=== PATIENT | female | born 1945 | race Caucasian/White ===

== ENCOUNTER 2017-01-07 16:33 | Inpatient (IN) | payer MEDICARE, OTHER ==
[~2017-01-07] VITALS: Ht 1615.4 cm; Wt 39.5 kg
--- NOTE | 2017-01-07 16:45 | NUR ---
lizet camargo, called and said she pt advocate and has power of commercial real estate attorney, giving more info on the pt. she said that dr. ashley at [facility] [phone] taking care of the pt, and aware of the fact that the pt is here at [place], also requesting the pt mingo transfered to [facility] when stable. dickson olmos notified.
--- NOTE | 2017-01-07 16:50 | NUR ---
called [facility] regarding transfer of the pt. no bed available at this point but may be later tonight. requesting face sheet and clinical to be faxed to [phone]
[2017-01-07 17:59] LABS: EOSINOPHILS # (AUTO) 0.1 K/uL (0.0-0.7); LYMPHOCYTES # (AUTO) 1.1 K/UL (0.8-4.8); MONOCYTES # (AUTO) 0.5 K/UL (0.1-1.30)
[2017-01-07 18:03] LABS: BASOPHILS % (AUTO) 0.2 % (0.0-2.0); EOSINOPHILS % (AUTO) 1.7 % (0.0-7.0); LYMPHOCYTES % (AUTO) 13.3 % (20.5-51.5); MEAN CORPUSCULAR HEMOGLOBIN 33.3 UUG (27.0-31.0); MEAN CORPUSCULAR HGB CONC 34 g/dL (32.0-37.0); MEAN CORPUSCULAR VOLUME 97.5 FL (81.0-99.0); MONOCYTES % (AUTO) 5.9 % (0.0-11.0); NEUTROPHILS # (AUTO) 6.4 K/UL (1.8-8.9); NEUTROPHILS % (AUTO) 78.9 % (38.5-71.5); PLATELET COUNT (AUTO) 195 K/UL (150-450); WHITE BLOOD COUNT (AUTO) 8.1 K/UL (4.0-11.2)
[2017-01-07 18:04] LABS: RED BLOOD CELL COUNT(AUTO) 2.11 MIL/UL (4.2-5.4)
[2017-01-07 18:05] LABS: HEMATOCRIT 20.6 % (37-47); HEMOGLOBIN 7.1 G/DL (12.0-16.0)
[2017-01-07 18:16] LABS: CARBON DIOXIDE 27 mmol/L (21-32); CHLORIDE 110 mmol/L (98-107); GLUCOSE 112 mg/dL (74-106); POTASSIUM 4.5 mmol/L (3.5-5.1); UREA NITROGEN, BLOOD 23 mg/dL (7-18)
[2017-01-07 18:20] LABS: ALANINE AMINOTRANSFERASE 64 U/L (14-59); ALKALINE PHOSPHATASE 888 U/L (50-136); ASPARTATE AMINOTRANSFERASE 105 U/L (15-37); BILIRUBIN,TOTAL 1.5 mg/dL (0.2-1.0); LIPASE 228 U/L (73-393); TOTAL PROTEIN, SERUM 5.8 g/dL (6.4-8.2)
[2017-01-07] MEDS ORDERED: PROP10TA29 PO (18:20)
[2017-01-07] MEDS ORDERED: PANT40TA2 PO (18:20)
[2017-01-07] MEDS ORDERED: HYDR-552 PO (18:20)
--- NOTE | 2017-01-07 18:55 | NUR ---
faxed the pt summary report and face sheet to [facility]
--- NOTE | 2017-01-07 19:33 | NUR ---
Received report from NAHID Zavala. Assumed care of pt at this time. Pt resting in position of comfort for self. Pt requesting small amount of pain medication. MD notified, awaiting further orders.
--- NOTE | 2017-01-07 20:08 | NUR ---
Pt medicated for discomfort, will monitor for effects of medication. Pt repositioned for comfort and given warm blanket.
--- NOTE | 2017-01-07 21:30 | NUR ---
Called [facility] for update on pts possible transfer to their facility. Was informed by Trisha (bed control) there are no beds available at this time.
--- NOTE | 2017-01-07 21:55 | NUR ---
Pt had three episodes of vomiting bright red blood. Dr. Ivey notified. Pt and bed cleaned and changed. Pt also c/o pain. Dr. Ivey notified. Pt medicated for pain and vomiting, will monitor for effects of medication. Pt resting in position of comfort for self.
--- NOTE | 2017-01-07 23:42 | NUR ---
No beds available at [facility]. Attempting to admit pt here. Repat labs drawn and sent. Epic television receiver analyzer paged for Dr. Ivey. Pt repositioned for comfort.
[2017-01-08] VITALS (16 sets, daily range): BP systolic 92–118; BP diastolic 32–60
[2017-01-08] LABS: BASOPHILS % (AUTO) 0.2 % (0.0-2.0); EOSINOPHILS % (AUTO) 0.1 % (0.0-7.0); HEMOGLOBIN 7.1 G/DL (12.0-16.0); LYMPHOCYTES # (AUTO) 1.4 K/UL (0.8-4.8); LYMPHOCYTES % (AUTO) 12.8 % (20.5-51.5); MEAN CORPUSCULAR HGB CONC 33 g/dL (32.0-37.0); MEAN CORPUSCULAR VOLUME 98.9 FL (81.0-99.0); MONOCYTES # (AUTO) 0.4 K/UL (0.1-1.30); MONOCYTES % (AUTO) 3.4 % (0.0-11.0); NEUTROPHILS # (AUTO) 9.5 K/UL (1.8-8.9); NEUTROPHILS % (AUTO) 83.5 % (38.5-71.5); PLATELET COUNT (AUTO) 225 K/UL (150-450); WHITE BLOOD COUNT (AUTO) 11.3 K/UL (4.0-11.2)
[2017-01-08 00:07] LABS: HEMATOCRIT 21.2 % (37-47); RED BLOOD CELL COUNT(AUTO) 2.14 MIL/UL (4.2-5.4)
--- NOTE | 2017-01-08 00:11 | NUR ---
Pt re-medicated for vomiting, will monitor for effects of medication. Fluid bolus infusing freely to gravity.
--- NOTE | 2017-01-08 00:41 | NUR ---
Pt's family Rigoberto [phone]
--- NOTE | 2017-01-08 00:42 | NUR ---
Consent for blood transfusion signed, awaiting blood products. Report called to NAHID Flores. Preparing to transfer pt to the floor.
--- NOTE | 2017-01-08 02:48 | NUR ---
RECEIVED PATIENT FROM E.Om[facility] ADMITTING DIAGNOSIS OF UPPER GI BLEEDING. INITIAL ASSESSMENTS DONE. PLACED ON TELEMETRY MONITORING SINUS BRADUCARDIA HR AT HIGH 50'S. VITAL SIGNS ARE STABLE. NAUSEATED NO VOMITING. HEMOGLOBIN 7.1, FOLLOWED UP PRBC 1 UNIT IN THE BLOOD BANK. STARTED NSS AT 75 ML/HR ORDERED. PATIENT IS WEAK BUT ALERT AND ORIENTED X4, COOPERATIVE WITH CARE. NOTED REDNESS/ DRY HEALING WOUND OVER THE NAVEL AREA OPEN TO AIR NO DISCHARGE. OTHERWISE PATIENT IS SLEEPING RIGHT NOW. CALL LIGHT WITHIN REACH.
--- NOTE | 2017-01-08 04:50 | NUR ---
CHECKED AND VERIFIED BLOOD PRODUCT. STARTED BLOOD TRANSFUSION PRBC. INITIAL VITAL SIGNS TAKEN. ADVISED PATIENT TO REPORT ANY SIGNS AND SYMPTOMS OF BLOOD TRANSFUSION REACTION TO THE ASSISTANT TECHNICIAN. WILL MONITOR.
--- NOTE | 2017-01-08 06:53 | NUR ---
BLOOD PRESSURE SBP MAINTAINING IN 90 SBP NO LIGHTHEADED OR DIZZINESS PER PATIENT. OTHERWISE PATIENT HAS NO S/S OF BLOOD TRANSFUSION REACTION. CALL LIGHT WITHIN REACH
--- NOTE | 2017-01-08 07:30 | NUR ---
NO SIGNS OF DISTRESS FINISHING BLOOD TRANSFUSION, DENIES PAIN CLOSELY MONITORED
--- NOTE | 2017-01-08 08:35 | NUR ---
BLOOD TRANSFUSION COMPLETED WITHOUT REACTIONS
[2017-01-08 09:00] LABS: BASOPHILS % (AUTO) 0.2 % (0.0-2.0); LYMPHOCYTES # (AUTO) 1.2 K/UL (0.8-4.8); LYMPHOCYTES % (AUTO) 13.9 % (20.5-51.5); MEAN CORPUSCULAR HEMOGLOBIN 31.2 UUG (27.0-31.0); MEAN CORPUSCULAR HGB CONC 33 g/dL (32.0-37.0); MEAN CORPUSCULAR VOLUME 95.3 FL (81.0-99.0); MONOCYTES # (AUTO) 0.3 K/UL (0.1-1.30); MONOCYTES % (AUTO) 3.6 % (0.0-11.0); NEUTROPHILS % (AUTO) 82.3 % (38.5-71.5); PLATELET COUNT (AUTO) 142 K/UL (150-450); RED BLOOD CELL COUNT(AUTO) 2.52 MIL/UL (4.2-5.4); WHITE BLOOD COUNT (AUTO) 8.5 K/UL (4.0-11.2)
[2017-01-08 09:20] LABS: HEMOGLOBIN 7.9 G/DL (12.0-16.0)
--- NOTE | 2017-01-08 13:00 | NUR ---
BLOOD TRANSFUSION STARTED CLOSELY MONITORED
--- NOTE | 2017-01-08 14:00 | NUR ---
NO SIGNS OF BLOOD TRANSFUSION REACTION NOTED
--- NOTE | 2017-01-08 16:00 | NUR ---
TRANSFUSION COMPLETED. FOR EGD IN AM
[2017-01-08 17:36] LABS: *BLOOD, URINE NEGATIVE (NEGATIVE); *CLARITY,URINE SLIGHTLY CLOUDY (CLEAR); *COLOR,URINE AMBER (YELLOW); *KETONES,URINE NEGATIVE (NEGATIVE); *PROTEIN,URINE TRACE (NEGATIVE); LEUKOCYTE ESTERASE ,URINE TRACE (NEGATIVE); NITRITE, URINE NEGATIVE (NEGATIVE); PH,URINE 5.5 (5.0-8.0); UGLUCOSE NEGATIVE (NEGATIVE)
--- NOTE | 2017-01-08 18:06 | NUR ---
PATIENT WAS SO SICK TO SIGN SURGICAL CONSENT BROTHER WHO IS ALSO A DPOA WAS AROUND AND SPOKE WITH DR ABDI SIGNED CONSENT
[2017-01-08 18:08] LABS: *BILIRUBIN,URIN 1+ (NEGATIVE)
[2017-01-08 18:09] LABS: BACTERIA,URINE MODERATE /HPF (NONE SEEN); RBC,URINE 0-3 /HPF (0-3); SQUAMOUS EPITHELIAL CELL,UR MANY /HPF (NONE SEEN)
[2017-01-08 18:10] LABS: MUCUS,URINE FEW /LPF (0-FEW)
--- NOTE | 2017-01-08 20:00 | NUR ---
pt received in bed AOx3. Pt resting comfortably at this time, no acute distress noted. IVF running in left hand, intact and patent. Pt aware and educated regarding EGD to be done in AM. Bed in low and locked position. Will continue to monitor.
--- NOTE | 2017-01-08 22:00 | NUR ---
family member called reporting pt has had prior procedures done at [facility], [place] with MD Dr Farmer, per family report pt was intubated with each procedure and procedure where pt wasnot intubated pt was transferred to ICU care. Will endorse to MD and surgery rn.
--- NOTE | 2017-01-09 02:00 | NUR ---
Pt awake to use restroom, pt alert but has periods of confusion. Comfort measures provided. No acute distress noted.
--- NOTE | 2017-01-09 03:11 | NUR ---
Pt sleeping in bed at this time, arouses easily. Receiving IVF and tolerating well. No acute distress noted.
[2017-01-09 05:01] VITALS: BP 112/62
--- NOTE | 2017-01-09 06:07 | NUR ---
Pt slept well through out the night. Receiving IVF, tolerating well. Remains NPO. Pre-op checklist done. Pt does c/o pain to abdomen but refusing any more morphine at this time. No acute distress noted.
[2017-01-09 06:30] LABS: BASOPHILS % (AUTO) 0.6 % (0.0-2.0); EOSINOPHILS # (AUTO) 0.1 K/uL (0.0-0.7); EOSINOPHILS % (AUTO) 1.9 % (0.0-7.0); HEMATOCRIT 25.2 % (37-47); HEMOGLOBIN 8.6 G/DL (12.0-16.0); LYMPHOCYTES # (AUTO) 1.2 K/UL (0.8-4.8); LYMPHOCYTES % (AUTO) 17.7 % (20.5-51.5); MEAN CORPUSCULAR HEMOGLOBIN 31.5 UUG (27.0-31.0); MEAN CORPUSCULAR HGB CONC 34 g/dL (32.0-37.0); MEAN CORPUSCULAR VOLUME 92.6 FL (81.0-99.0); MONOCYTES # (AUTO) 0.6 K/UL (0.1-1.30); MONOCYTES % (AUTO) 8.8 % (0.0-11.0); NEUTROPHILS # (AUTO) 5.1 K/UL (1.8-8.9); PLATELET COUNT (AUTO) 104 K/UL (150-450); RED BLOOD CELL COUNT(AUTO) 2.72 MIL/UL (4.2-5.4)
[2017-01-09 06:48] LABS: CARBON DIOXIDE 24 mmol/L (21-32); CHLORIDE 111 mmol/L (98-107); CHOLESTEROL 102 mg/dL (<200); CREATININE 1.3 mg/dL (0.6-1.3); GLUCOSE 116 mg/dL (74-106); HDL CHOLESTEROL 29 mg/dL (40-60); MAGNESIUM 1.6 mg/dL (1.8-2.4); PHOSPHOROUS 2.5 mg/dL (2.5-4.9); POTASSIUM 4.2 mmol/L (3.5-5.1); TRIGLYCERIDES 52 MG/DL (30-150); UREA NITROGEN, BLOOD 34 mg/dL (7-18)
--- NOTE | 2017-01-09 07:25 | NUR ---
pt received in bed AOx1. Pt resting comfortably at this time, no acute distress noted. IVF running in left hand, intact and patent. . Bed in low and locked position. Will continue to monitor.
--- NOTE | 2017-01-09 07:31 | NUR ---
pt went to or via bed for egd in stable condition.
[2017-01-09 08:39] LABS: THYROID STIMULATING HORMONE 4.662 mIU/mL (0.358-3.740)
--- NOTE | 2017-01-09 09:58 | NUR ---
pt received from recovery room via bed in stable condition.
[2017-01-09 10:04] VITALS: BP 109/63
[2017-01-09 11:19] VITALS: BP 120/63
[2017-01-09 16:13] VITALS: BP 116/65
--- NOTE | 2017-01-09 19:30 | NUR ---
received patient laying in bed comfortably, no acute distress noted, patient on IVF tolerating well, complains of abdominal pain 8/10, no vomiting noted, bed in low position and locked, call light in reach.
[2017-01-09 20:00] VITALS: BP 121/47
--- NOTE | 2017-01-09 22:00 | NUR ---
complains of abdominal pain 11/15, morphine PRN given, will continue to monitor.
[2017-01-10 05:11] VITALS: BP 111/51
[2017-01-10 06:36] LABS: ALANINE AMINOTRANSFERASE 76 U/L (14-59); ALKALINE PHOSPHATASE 939 U/L (50-136); ASPARTATE AMINOTRANSFERASE 117 U/L (15-37); BILIRUBIN,TOTAL 0.9 mg/dL (0.2-1.0); CARBON DIOXIDE 26 mmol/L (21-32); CHLORIDE 111 mmol/L (98-107); CREATININE 1.1 mg/dL (0.6-1.3); GLUCOSE 108 mg/dL (74-106); LIPASE 115 U/L (73-393); MAGNESIUM 2.2 mg/dL (1.8-2.4); PHOSPHOROUS 2.1 mg/dL (2.5-4.9); POTASSIUM 3.8 mmol/L (3.5-5.1); TOTAL PROTEIN, SERUM 6.3 g/dL (6.4-8.2); UREA NITROGEN, BLOOD 22 mg/dL (7-18)
[2017-01-10 07:32] LABS: BASOPHILS % (AUTO) 0.4 % (0.0-2.0); EOSINOPHILS # (AUTO) 0.2 K/uL (0.0-0.7); HEMATOCRIT 25.4 % (31.2-41.9); LYMPHOCYTES # (AUTO) 0.8 K/uL (20.0-40.0); LYMPHOCYTES % (AUTO) 14.9 % (20.5-51.5); MEAN CORPUSCULAR HEMOGLOBIN 32.4 uug (24.7-32.8); MEAN CORPUSCULAR HGB CONC 35 g/dL (32.3-35.6); MEAN CORPUSCULAR VOLUME 91.9 fL (75.5-95.3); MONOCYTES # (AUTO) 0.5 K/uL (2.0-10.0); MONOCYTES % (AUTO) 8.8 % (0.0-11.0); NEUTROPHILS % (AUTO) 72.9 % (38.5-71.5); PLATELET COUNT (AUTO) 83 K/uL (179-408); RED BLOOD CELL COUNT(AUTO) 2.77 MIL/uL (3.63-4.92); WHITE BLOOD COUNT (AUTO) 5.5 K/uL (3.8-11.8)
[2017-01-10 11:45] VITALS: BP 130/70
[2017-01-10 13:16] LABS: BAND % (MANUAL) 3 % (0-10); BASOPHILS % (MANUAL) 1 % (0-2); EOSINOPHILS % (MANUAL) 5 % (0-8); LYMPHOCYTES % (MANUAL) 14 % (20-40); MONOCYTES % (MANUAL) 9 % (2-10); NEUTROPHILS % (MANUAL) 68 % (42-75)
[2017-01-10 15:55] VITALS: BP 135/76
[2017-01-10 20:00] VITALS: BP 169/77
--- NOTE | 2017-01-11 04:00 | NUR ---
PT CONTINUE TO HAVE ABDOMINAL PAIN MORPHINE GIVEN Q3HRS.,WITH GOOD RELIEF, SLEPT WELL, NEW IV SITE INTACT, CONTINUE IV FLUIDS.VSS,AFEBRILE. ALL NEEDS ATTENDED.CALL LIGHT AT REACHED.
[2017-01-11 04:25] VITALS: BP 121/48
[2017-01-11 06:56] LABS: BASOPHILS % (AUTO) 0.5 % (0.0-2.0); EOSINOPHILS # (AUTO) 0.2 K/uL (0.0-0.7); EOSINOPHILS % (AUTO) 3.8 % (0.0-7.0); HEMATOCRIT 25.5 % (37-47); HEMOGLOBIN 8.9 G/DL (12.0-16.0); LYMPHOCYTES # (AUTO) 0.8 K/UL (0.8-4.8); LYMPHOCYTES % (AUTO) 14.7 % (20.5-51.5); MEAN CORPUSCULAR HEMOGLOBIN 32.7 UUG (27.0-31.0); MEAN CORPUSCULAR HGB CONC 35 g/dL (32.0-37.0); MEAN CORPUSCULAR VOLUME 93.8 FL (81.0-99.0); MONOCYTES # (AUTO) 0.4 K/UL (0.1-1.30); MONOCYTES % (AUTO) 6.9 % (0.0-11.0); NEUTROPHILS # (AUTO) 4.1 K/UL (1.8-8.9); NEUTROPHILS % (AUTO) 74.1 % (38.5-71.5); PLATELET COUNT (AUTO) 79 K/UL (150-450); RED BLOOD CELL COUNT(AUTO) 2.71 MIL/UL (4.2-5.4); WHITE BLOOD COUNT (AUTO) 5.5 K/UL (4.0-11.2)
[2017-01-11 07:09] LABS: CARBON DIOXIDE 24 mmol/L (21-32); CHLORIDE 111 mmol/L (98-107); GLUCOSE 105 mg/dL (74-106); MAGNESIUM 1.9 mg/dL (1.8-2.4); PHOSPHOROUS 2.7 mg/dL (2.5-4.9); UREA NITROGEN, BLOOD 18 mg/dL (7-18)
--- NOTE | 2017-01-11 07:30 | NUR ---
pt received in bed AOx2X3. Pt resting comfortably at this time, no acute distress noted. IVF running in left hand, intact and patent. . Bed in low and locked position. Will continue to monitor.
--- NOTE | 2017-01-11 11:33 | NUR ---
WOUND CARE CONSULT: PT PRESENTS WITH ESCHAR TO ABDOMEN, PRESENT ON ADMISSION. RECOMMEND SURGICAL CONSULT. NO DRAINAGE NOTED. WILL SEE PRN. Addendum: 01/11/17 at 1134 by NELY SON RN Amended: Links added.
[2017-01-11 11:47] VITALS: BP 144/64
--- NOTE | 2017-01-11 12:58 | NUR ---
Patient has been accepted at [facility]. personnel counselor is Sierra. Awaiting approval from [facility] at this time. Arline is the CM contact phone: .
--- NOTE | 2017-01-11 14:11 | NUR ---
[facility] (Arline) has authorize transfer to [facility] and are setting up transportation from [facility]. Dr. Anderson is in the process of discharging patient.
[2017-01-11 14:33] LABS: BAND % (MANUAL) 1 % (0-10); BASOPHILS % (MANUAL) 2 % (0-2); EOSINOPHILS % (MANUAL) 3 % (0-8); LYMPHOCYTES % (MANUAL) 15 % (20-40); MONOCYTES % (MANUAL) 7 % (2-10); NEUTROPHILS % (MANUAL) 72 % (42-75)
--- NOTE | 2017-01-11 14:46 | NUR ---
Pt sleeping in bed at this time, arouses easily. Receiving IVF and tolerating well. No acute distress noted.
[2017-01-11] MEDS ORDERED: LEVO500T2 PO (15:54)
[2017-01-11 15:56] VITALS: BP 116/54
--- NOTE | 2017-01-11 16:46 | NUR ---
D/C ORDERS RECEIVED NOTED AND CARRIED OUT.D/C INSTRUCTIONS AND EDUCATIONS GIVEN TO THE USP RN LLOYD.D/C HEOLPCK PER MD ORDERS.PT LEFT THE FACILITY VIA AMBULANCES IN STABLE CONDITION.
== END 2017-01-11 17:00 | DRG 368 ==
LOC: ER 16:34 → TELE 01-08 00:48 → MED 01-08 15:43
PROVIDERS: ATTEND Internal Medicine
PROC: 30233N1 Transfusion of Nonautologous Red Blood Cells into Peripheral Vein, Percutaneous Approach (ICD-10-PCS; principal; 2017-01-08)
PROC: 06L34CZ Occlusion of Esophageal Vein with Extraluminal Device, Percutaneous Endoscopic Approach (ICD-10-PCS; 2017-01-09)
DX: I85.01 Esophageal varices with bleeding (principal); J69.0 Pneumonitis due to inhalation of food and vomit; E43 Unspecified severe protein-calorie malnutrition; C22.1 Intrahepatic bile duct carcinoma; R18.8 Other ascites; N39.0 Urinary tract infection, site not specified; I50.32 Chronic diastolic (congestive) heart failure; B96.20 Unspecified Escherichia coli [E. coli] as the cause of diseases classified elsewhere; K76.6 Portal hypertension; D62 Acute posthemorrhagic anemia; R16.1 Splenomegaly, not elsewhere classified; K31.89 Other diseases of stomach and duodenum; Z92.3 Personal history of irradiation; Z74.09 Other reduced mobility; R74.0 Nonspecific elevation of levels of transaminase and lactic acid dehydrogenase [LDH]; Z96.89 Presence of other specified functional implants; Z79.899 Other long term (current) drug therapy
CPT/HCPCS: 36415; 70030-TC; 71010; 82746; 83605; 83690; 83735; 84100; 84443; 85025; 85730; 86850; 86900; 86901; 86920; 87040; 87077; 87086; 92523; 93005; 97116; 97530; A4217; A4663; C9113; J0330; J0696; J1170; J2270; J2310; J2405; J2543; J3010; J3370; J3475; J3490; J7030; J7042; J7050; J7060; P9016-BL; P9021